=== PATIENT | male | born 1970 | race Native Hawaiian/Other Pacific Islander ===

== ENCOUNTER 2017-11-16 21:50 | Emergency (ER) | payer OTHER ==
[~2017-11-16] VITALS: Ht 188 cm; Wt 99.3 kg
[2017-11-16 22:17] LABS: PLATELET COUNT 276 K/uL (142-355)
== END 2017-11-16 23:18 | disposition home or self-care (01) ==
LOC: ED 21:50
DX: M79.1 Myalgia (principal); R52 Pain, unspecified
CPT/HCPCS: 36415; 85027; 87081; 87804; 87880; 99283